=== PATIENT | female | born 2000 | race African-American/Black ===

== ENCOUNTER 2024-05-25 10:06 | Inpatient (IN) | payer OTHER ==
[2024-05-19 12:10] VITALS: BMI 47.7
[2024-05-25] MEDS ORDERED: CARBOPROST TROMETHAMINE 250 MCG/ML 1 ML AMP IM PRN (10:23)
[2024-05-25] MEDS ORDERED: miSOPROStoL 200 MCG TAB PO PRN (10:23)
[2024-05-25] MEDS ORDERED: OXYTOCIN 10 UNIT/ML 1 ML VIAL IM PRN (10:23)
[2024-05-25] MEDS ORDERED: TRANEXAMIC 1,000 MG/100ML-NACL 1,000 MG in EMPTY BAG 1 BAG IV PRN (10:23)
[2024-05-25] MEDS ORDERED: METHYLERGONOVINE 0.2 MG/ML 1 ML AMP IM PRN (10:23)
[2024-05-25] MEDS: LACTATED RINGERS 1,000 ML IV ONE (10:47)
[2024-05-25 10:59] LABS: Basophils % (A) 0 %; Eosinophils # (A) 0.2 k/uL (0-0.7); Eosinophils % (A) 2 %; HCT 38.1 % (34.0-46.0); HGB 11.8 gm/dL (11.4-16.0); Lymphocytes # (A) 1.4 k/uL (1.0-4.8); Lymphocytes % (A) 15 %; MCH 27.6 pg (25.0-35.0); MCHC 31.1 g/dL (31.0-37.0); MCV 88.9 fL (80.0-100.0); Monocytes # (A) 0.6 k/uL (0-1.0); Monocytes % (A) 7 %; Neutrophils # (A) 6.8 k/uL (1.3-7.7); Neutrophils % (A) 74 %; Platelet Count 180 k/uL (150-450); RBC 4.28 m/uL (3.80-5.40); RDW 15.4 % (11.5-15.5); WBC 9.2 k/uL (3.8-10.6)
[2024-05-25 11:01] LABS: Glucose,Whole Blood 87 mg/dL (70-110)
[2024-05-25 11:12] VITALS: RESP 16
[2024-05-25] MEDS: CITRIC ACID-SODIUM CITRATE 15 ML CUP PO ONE (11:49)
[2024-05-25] MEDS ORDERED: MORPHINE SULFATE (PF) 0.3 MG/0.3 ML SYR ONE (12:15)
[2024-05-25] MEDS ORDERED: PHENYLEPHRINE-0.9% NACL SYG 1,000 MCG/10 ML SYRINGE ONE (12:15)
[2024-05-25] MEDS ORDERED: ONDANSETRON 4 MG/2 ML VIAL ONE (12:15)
[2024-05-25] MEDS ORDERED: ePHEDrine 50 MG/ML 1 ML VIAL ONE (12:15)
[2024-05-25] MEDS ORDERED: OXYTOCIN 30 UNITS/500 ML NS BAG IV ONE (12:15)
[2024-05-25] MEDS ORDERED: KETOROLAC 15 MG/ML 1 ML VIAL ONE (12:15)
--- NOTE | 2024-05-25 12:19 | P.HPOB ---
History of Present Illness H&P Date: 05/25/24 Chief Complaint: 39-3/7 weeks, repeat section The patient is a 24-year-old 2 para 1-0-0-1 who is admitted to the hospital for repeat low-transverse section. On admission, all signs are reassuring with a category 1 heart rate tracing. She has been treated as a diabetic during the secondary to a failed 1 hour glucose tolerance test and blood sugars have been relatively normal throughout. She additionally was found by ultrasound to have the fetus had a large for gestational age size with growth above the 90th percentile. Group B strep status is negative. Obstetrical history: 2 para 1-0-0-1 with 1 term section. Current statistics are listed in history of present illness. EDC of 05/29/2024 was established by last menstrual period and confirmed by 9-week ultrasound. Laboratory workup demonstrates a blood type of O+ with a negative antibody screen. Rubella status is immune. The remainder of the laboratory workup was within normal limits. Early Glucola was normal while second trimest er Glucola was elevated and the patient declined 3-hour glucose tolerance test. Group B strep status is negative. Gynecologic history: Unremarkable with no history of any infections to include STDs. Review of Systems Review of systems is confined to history of present illness. Past Medical History Past Medical History: Asthma, Diabetes Mellitus, GERD/Reflux, Skin Disorder Additional Past Medical History / Comment(s): Gestational Diebetes- on insulin. Childhood asthma- no issues since. Hx of Pre-eclampsia with 1st in 2019. Eczema History of Any Multi-Drug Resistant Organisms: None Reported Past Surgical History: Section Additional Past Surgical History / Comment(s): Fx left arm in childhood had surgery 2006. x1 2019. Past Anesthesia/Blood Transfusion Reactions: No Reported Reaction Additional Past Anesthesia/Blood Transfusion Reaction / Comment(s): No hx of blood transfusion. Past Psychological History: No Psychological Hx Reported Smoking Status: Never smoker Past Alcohol Use History: None Reported Additional Past Alcohol Use History / Comment(s): Prior to very occasionally. Past Drug Use History: None Reported - Past Family History Father Family Medical History: CVA/TIA, Diabetes Mellitus, Myocardial Infarction ([place]) Mother Family Medical History: Hypertension Medications and Allergies Home Medications Medication Instructions Recorded Confirmed Type Insulin Degludec [Tresiba 14 units SQ QAM 05/19/24 05/25/24 History Flextouch U-100 Pen] Pre Tomasz Vit(Unknown Dose) 1 dose PO QAM 05/19/24 05/25/24 History Allergies Allergy/AdvReac Type Severity Reaction Status Date / Time No Known Allergies Allergy Verified 05/25/24 10:22 Exam Vital Signs Temp Pulse Resp BP Pulse Ox 05/25/24 11:01 98.2 F 100 16 138/82 98 Intake and Output 05/24/24 05/25/24 05/25/24 22:59 06:59 14:59 Other: Weight 119.749 kg In general, this is a well-developed mild to moderately obese woman in no acute distress. Her heart has a regular rhythm and rate without murmur. Her lungs are clear to auscultation bilaterally in all gomez. Her abdomen is gravid, nondistended, has normal active bowel sounds, soft, nontender, and without any palpable masses aside from the uterine fundus. Her extremities are without any cyanosis, clubbing, or significant edema and are nontender to palpation bilaterally. Digital cervical examination is deferred. Results Result Diagrams: 05/25/24 10:44 Assessment and Plan (1) Previous section Current Visit: Yes Status: Acute Code(s): Z98.891 - HISTORY OF UTERINE SCAR FROM PREVIOUS SURGERY SNOMED Code(s): 591258411 (2) Term Current Visit: Yes Status: Acute Code(s): Z34.90 - ENCNTR FOR SUPRVSN OF NORMAL , UNSP, UNSP TRIMESTER SNOMED Code(s): 72795763 Plan: The patient is admitted for repeat low-transverse section. The risks and complications have been thoroughly discussed and she has understood and agreed to proceed.
[2024-05-25] MEDS ORDERED: ONDANSETRON 4 MG/2 ML VIAL IVP PRN (12:59)
[2024-05-25] MEDS ORDERED: NALOXONE 0.4 MG/ML 1 ML VIAL IV PRN (12:59)
[2024-05-25] MEDS ORDERED: diphenhydrAMINE 50 MG/ML 1 ML VIAL IVP PRN ×3 (12:59→13:09)
[2024-05-25] MEDS ORDERED: KETOROLAC 15 MG/ML 1 ML VIAL IVP PRN (13:09)
[2024-05-25] MEDS ORDERED: SIMETHICONE 80 MG CHEWABLE PO PRN (13:09)
[2024-05-25] MEDS ORDERED: LANOLIN CREAM 1 GM TUBE TOPICAL PRN (13:09)
[2024-05-25] MEDS ORDERED: diphenhydrAMINE 25 MG CAP PO PRN (13:09)
[2024-05-25] MEDS ORDERED: diphenhydrAMINE 50 MG CAP PO PRN (13:09)
[2024-05-25] MEDS ORDERED: METOCLOPRAMIDE 5 MG/ML 2 ML VIAL IVP PRN (13:09)
[2024-05-25] MEDS ORDERED: ZOLPIDEM 5 MG TAB PO PRN (13:09)
--- NOTE | 2024-05-25 13:18 | P.OP ---
Date of Procedure: 05/25/24 Preoperative Diagnosis: 1. 39-3/7 weeks, previous section, requesting repeat #2. Large for gestational age fetus Postoperative Diagnosis: Same Procedure(s) Performed: #1. Repeat low-transverse section Anesthesia: spinal Surgeon: Royce Adams Design Assistant #1: Maia Corral Estimated Blood Loss (ml): 750 IV fluids (ml): 750 Urine output (ml): 600 Pathology: other (Placenta) Condition: stable Disposition: floor Operative Findings: The patient was taken to the operating room where she was delivered of a viable 11 pound 4 ounce baby boy with Apgars of 9 at 1 minute and 9 at 5 minutes in the occiput transverse position. The placenta was delivered manually, intact, grossly normal with a grossly normal three-vessel cord. The uterus, tubes, and ovaries were entirely normal to inspection. There was a moderate amount of scarring at the level of the fascia and rectus muscles in the lower uterine segment was somewhat thin upon entry. Description of Procedure: Patient was prepped and draped in usual fashion after spinal anesthesia was administered by the anesthesiologist. A Pfannenstiel incision was made and extended into the abdominal cavity without difficulty. There was a mild amount of scarring noted at the level of the fascia and rectus muscles which was managed without significant difficulty. The bladder peritoneum was noted to be scarred somewhat high on the lower uterine segment and was elevated, incised, and reflected distally. A 2 cm incision was made in the transverse plane of the lower uterine segment to enter the uterus at which time clear fluid was noted. The incision was extended in both directions using the bandage scissors. The lower uterine segment was somewhat thin in nature. The head was delivered up and through the incision where the nose and mouth were thoroughly suctioned. The remainder of the was delivered onto the field where the cord was doubly clamped, cut, and the infant passed for resuscitative measures with weight and Apgars as noted above. The placenta was delivered manually, intact, grossly normal as noted above. Uterus was exteriorized and the anterior cavity of the uterus swept of any remaining placental or membranous fragments. The margins of the uterine incision were grasped with Sanchez clamps and the uterus closed in 2 layers. The first layer was a running locking stitch of 0 chromic catgut followed by a running imbricating stitch of 0 chromic catgut, each from margin to margin. Hemostasis appeared to be excellent. The posterior cul-de-sac was suctioned using a guard and the uterine and ovarian findings were normal as noted above. The uterus was replaced within the abdominal cavity and the gutters swept of any remaining blood, fluid, or clot. Reexamination of the incision demonstrated excellent hemostasis. The parietal peritoneum was loosely reapproximated and the layer of muscles examined and found to be hemostatic. The fascia was closed with 2 running stitches of 0 Vicryl proceeding from the lateral margins to the midpoint. The subcutaneous tissues were irrigated, made hemostatic with the Bovie, and reapproximated with a running stitch of 3-0 plain catgut. The skin was reapproximated with a running subcuticular stitch of 4-0 Vicryl followed by half-inch Steri-Strips placed with Mastisol. Quantitative blood loss for the case was 740 mL. There were no complications. All sponge, instrument, and needle counts were correct. The patient tolerated the procedure well and proceeded to the recovery room in stable condition. Both mother and infant are resting comfortably in recovery.
[2024-05-25] MEDS: OXYTOCIN 30 UNITS/500 ML NS 30 UNIT in SALINE 1 500ML.BAG IV SCH (13:26)
[2024-05-25] MEDS: LACTATED RINGERS 1,000 ML IV SCH (13:26)
[2024-05-25] MEDS: ACETAMINOPHEN TAB 500 MG TAB PO SCH (15:02)
[2024-05-25] MEDS: IBUPROFEN 600 MG TAB PO SCH (18:54)
[2024-05-26] MEDS: SENNOSIDES-DOCUSATE SODIUM 1 EACH TAB PO SCH (00:13)
--- NOTE | 2024-05-26 06:14 | P.PN ---
Progress Note - Text Progress Note Date: 05/26/24 Patient doing well. Ambulating w/o weakness or paresthesia. Denies headache. Pain /. Denies pruritis. Back - spinal site clean and dry A/P POD#1 s/p w/ spinal duramorph - continue multimodal analgesia
[2024-05-26 06:40] LABS: Anisocytosis Slight; Basophils % (A) 0 %; Eosinophils # (A) 0.1 k/uL (0-0.7); Eosinophils % (A) 2 %; HCT 27.6 % (34.0-46.0); Lymphocytes # (A) 1.4 k/uL (1.0-4.8); Lymphocytes % (A) 18 %; MCH 29.8 pg (25.0-35.0); MCHC 34.2 g/dL (31.0-37.0); MCV 87.1 fL (80.0-100.0); Mean Platelet Volume 9.5; Monocytes # (A) 0.5 k/uL (0-1.0); Monocytes % (A) 7 %; Neutrophils # (A) 5.7 k/uL (1.3-7.7); Neutrophils % (A) 72 %; Platelet Count 134 k/uL (150-450); RBC 3.17 m/uL (3.80-5.40); RDW 16.1 % (11.5-15.5); WBC 7.9 k/uL (3.8-10.6)
[2024-05-26 06:46] LABS: HGB 9.4 gm/dL (11.4-16.0)
--- NOTE | 2024-05-26 09:30 | P.PNOBGPC ---
Subjective - Subjective Patient reports: Reports appetite normal, Reports voiding normally, Reports pain well controlled, Reports ambulating normally : doing well Objective - Vital Signs Latest vital signs: Vital Signs Temp Pulse Resp BP Pulse Ox 05/26/24 04:00 97.6 F 77 16 113/78 99 05/26/24 00:00 98.0 F 68 16 94/55 96 05/25/24 21:00 16 05/25/24 20:00 98.0 F 72 16 98/61 95 05/25/24 19:00 16 05/25/24 17:00 62 16 98 05/25/24 15:23 96.3 F L 71 16 84/52 98 05/25/24 15:10 67 16 78/42 98 05/25/24 14:55 66 16 82/44 97 05/25/24 14:40 79 16 91/50 98 05/25/24 14:25 67 16 95/48 98 05/25/24 14:10 72 16 98 05/25/24 13:55 74 16 97/57 99 05/25/24 13:40 86 16 96/53 97 05/25/24 13:25 86 16 104/59 99 05/25/24 13:10 97.3 F L 75 16 98/42 99 05/25/24 11:01 98.2 F 100 16 138/82 98 Intake and Output 05/25/24 05/26/24 05/26/24 22:59 06:59 14:59 Output Total 1550 200 Balance -1550 -200 Output: Urine 1200 200 Uretheral (Sanchez) 500 Output, Quantitative 350 Blood Loss Other: Voiding Method Indwelling Catheter # Voids 1 - Exam Extremities: Present: normal Abdomen: Present: normal appearance, soft. Absent: distention, tenderness Incision: Present: normal, dry, intact Uterus: Present: normal, firm (The uterine fundus is tonic and minimally tender below the umbilicus.) - Labs Labs: Abnormal Lab Results - Last 24 Hours (Table) 05/26/24 05/26/24 Range/Units 06:17 06:17 RBC 3.17 L (3.80-5.40) m/uL Hgb 9.4 L D (11.4-16.0) gm/dL Hct 27.6 L (34.0-46.0) % RDW 16.1 H (11.5-15.5) % Plt Count 134 L (150-450) k/uL Hemoglobin A1c 6.2 H (<=6.0) % Assessment and Plan (1) Previous section Current Visit: Yes Status: Acute Code(s): Z98.891 - HISTORY OF UTERINE SCAR FROM PREVIOUS SURGERY SNOMED Code(s): 825866773 (2) Term Current Visit: Yes Status: Acute Code(s): Z34.90 - ENCNTR FOR SUPRVSN OF NORMAL , UNSP, UNSP TRIMESTER SNOMED Code(s): 94811637 (3) S/P section Current Visit: Yes Status: Acute Code(s): Z98.891 - HISTORY OF UTERINE SCAR FROM PREVIOUS SURGERY SNOMED Code(s): 892838081 Plan: Continue routine and postoperative care. I have encouraged the patient to ambulate in the hallways routinely. I would anticipate discharge home tomorrow pending no complications.
[2024-05-27] MEDS: FERROUS SULFATE 325 MG TAB PO SCH (12:24)
--- NOTE | 2024-05-27 12:27 | P.PNOBGPC ---
Subjective - Subjective Principal diagnosis: s/p repeat Interval history: The patient is doing well this morning and had no acute events overnight. She has no complaints this morning. She reports minimal lochia, passing flatus, voiding without difficulty, ambulating, and eating/drinking without nausea or vomiting. She is breast feeding her infant without difficulty. She denies chest pain, shortness of breathing, fevers, or chills overnight. She denies pain or swelling in the legs. Patient reports: Reports appetite normal, Reports voiding normally, Reports pain well controlled, Reports ambulating normally [place]: doing well, nursing well Objective - Vital Signs Latest vital signs: Vital Signs Temp Pulse Resp BP Pulse Ox 05/27/24 07:56 16 05/27/24 01:35 98.0 F 80 16 130/72 05/26/24 20:00 97.7 F 91 16 138/87 99 Intake and Output 05/26/24 05/27/24 05/27/24 22:59 06:59 14:59 Other: Voiding Method Toilet # Voids 1 1 1 - Exam Extremities: Present: normal Abdomen: Present: normal appearance, soft Incision: Present: normal, dry, intact Uterus: Present: normal, firm Assessment and Plan Assessment: 24 year old now POD#2 s/p repeat Plan: 1. Postoperative. Meeting all milestones, anticipate discharge home tomorrow. 2. Viable male . Getting phototherapy. Dispo: Anticipate discharge home on POD#3-4, depending on baby's course.
--- NOTE | 2024-05-28 09:10 | P.DS ---
Providers Date of admission: 05/25/24 10:06 Expected date of discharge: 05/28/24 Attending physician: Royce Adams Primary care physician: Stated None - Discharge Diagnosis(es) (1) S/P section Current Visit: Yes Status: Acute Hospital Course: Patient presented for a repeat low transverse . She went this procedure without complication. Postoperative course was uneventful. She denies nausea, vomiting, chest pain, shortness of breath or calf pain. Patient will be discharged home postoperative day #3 in stable condition to follow-up with Dr. Fraire in 2 weeks. Plan - Discharge Summary Discharge Rx Participant: No New Discharge Prescriptions: New Ibuprofen [Motrin] 600 mg PO Q6H #30 tab No Action Pre Vit(Unknown Dose) 1 dose PO QAM Insulin Degludec [Tresiba Flextouch U-100 Pen] 14 units SQ QAM Discharge Medication List Insulin Degludec [Tresiba Flextouch U-100 Pen] 14 units SQ QAM 05/19/24 [History] Pre Tomasz Vit(Unknown Dose) 1 dose PO QAM 05/19/24 [History] Ibuprofen [Motrin] 600 mg PO Q6H #30 tab 05/28/24 [Rx] Follow up Appointment(s)/Referral(s): Royce Adams MD [STAFF PHYSICIAN] - 2 Weeks Discharge Disposition: HOME SELF-CARE
[2024-05-28 16:41] VITALS: BP 139/82; PULSE 97; TEMP 98.1
== END 2024-05-28 19:30 | disposition home or self-care (01) | DRG 540 ==
LOC: 4FBP 10:06
PROVIDERS: ADMIT Obstetrics & Gynecology; ATTEND Obstetrics & Gynecology
PROC: 10D00Z1 Extraction of Products of Conception, Low, Open Approach (ICD-10-PCS; principal; 2024-05-25 12:00)
DX: O34.211 Maternal care for low transverse scar from previous cesarean delivery (principal); O36.60X0 Maternal care for excessive fetal growth, unspecified trimester, not applicable or unspecified; O24.92 Unspecified diabetes mellitus in childbirth; Z37.0 Single live birth; Z79.4 Long term (current) use of insulin
CPT/HCPCS: 83036; 85025; 86850; 86900; 86901; 88307